=== PATIENT | female | born 1970 | race American Indian/Alaskan Native ===

== ENCOUNTER 2018-08-27 17:15 | Inpatient (IN) | payer MEDICAID, OTHER ==
[2018-08-27] MEDS ORDERED: ASPIRIN PO ONE (17:24)
[2018-08-27] MEDS ORDERED: LOPRESSOR IV ONE (17:52)
--- NOTE | 2018-08-27 17:55 | Emergency Department Report ---
ED Chest Pain HPI - General Chief Complaint: Chest Pain Stated Complaint: LEFT SIDE ARM/BACK SPASMS Time Seen by Provider: 08/27/18 17:33 Source: patient Mode of arrival: Ambulatory Limitations: No Limitations - History of Present Illness Initial Comments: 48-year-old -[place] female presents to the emergency department with a complaint of a 3-4 day history of some left-sided chest pain that she thought was gas pains. She tried some Gas-X for her symptoms without any relief. For the past 24 hours the patient has had some pain and numbness from the left shoulder down the left arm. All other symptoms are also associated with some shortness of breath and some nausea without vomiting. No recent travel or sick contacts at home. She does have a history of hypertension. She is a tobacco smoker. She denies any illicit drug use. No recent travel or sick contacts at home. She has a primary care physician but is having her first appointment with them this coming Monday. The pain is reproducible with movement of her left arm. - Related Data Home Medications Medication Instructions Recorded Confirmed Last Taken amLODIPine [Norvasc] 5 mg PO DAILY 08/27/18 08/27/18 08/24/18 Allergies Allergy/AdvReac Type Severity Reaction Status Date / Time No Known Allergies Allergy Verified 05/30/14 12:39 Heart Score - HEART Score History: Moderately suspicious EKG: Normal Age: 45-65 Risk factors: 1-2 risk factors Troponin: < normal limit HEART Score: 3 - Critical Actions Critical Actions: 0-3 pts:0.9-1.7%risk of adverse cardiac event.Candidate for discharge ED Review of Systems ROS: Stated complaint: LEFT SIDE ARM/BACK SPASMS Other details as noted in HPI Comment: All other systems reviewed and negative Constitutional: denies: chills, fever Eyes: denies: eye pain, vision change ENT: denies: ear pain, throat pain Respiratory: shortness of breath. denies: cough Cardiovascular: chest pain. denies: edema Gastrointestinal: denies: abdominal pain, vomiting Genitourinary: denies: dysuria, discharge Musculoskeletal: back pain, myalgia Skin: denies: rash, lesions Neurological: denies: headache, weakness ED Past Medical Hx - Past Medical History Hx Hypertension: Yes Hx Heart Attack/AMI: No Hx Diabetes: No Hx Deep Vein Thrombosis: No Hx Pulmonary Embolism: No Hx Liver Disease: No Hx Renal Disease: No Hx Sickle Cell Disease: No Hx Headaches / Migraines: No Hx Seizures: No Hx Asthma: No Hx COPD: No Hx Tuberculosis: No Hx HIV: No - Social History Smoking Status: Current Every Day Smoker Substance Use Type: Alcohol - Medications Home Medications: Home Medications Medication Instructions Recorded Confirmed Last Taken Type amLODIPine [Norvasc] 5 mg PO DAILY 08/27/18 08/27/18 08/24/18 History ED Physical Exam - General Limitations: No Limitations - Other Other exam information: GENERAL: The patient is well-developed well-nourished. HEENT: Normocephalic. Atraumatic. Patient has moist mucous membranes. EYES: Extraocular motions are intact. Pupils are equal and reactive to light bilaterally. NECK: Supple. Trachea is midline. CHEST/LUNGS: Clear to auscultation. There is no respiratory distress noted. HEART/CARDIOVASCULAR: Regular. There is no tachycardia. There is no obvious murmur. ABDOMEN: Abdomen is soft, nontender. Patient has normal bowel sounds. There is no abdominal distention. SKIN: Skin is warm and dry. NEURO: The patient is awake, alert, and oriented. The patient is cooperative. The patient has no focal neurologic deficits. The patient has normal speech. MUSCULOSKELETAL: There is no limitation range of motion. There is no evidence of acute injury. BACK: No midline thoracic or lumbar tenderness to palpation, step-off or deformity. There is some reproducible left upper lateral back tenderness to palpation over the musculature. ED Course Vital Signs 08/27/18 08/27/18 08/27/18 17:21 17:24 18:02 Temperature 98.2 F Pulse Rate 102 H 97 H Respiratory 20 19 Rate Blood Pressure 231/130 Blood Pressure 199/120 [Left] O2 Sat by Pulse 100 Oximetry 08/27/18 08/27/18 08/27/18 18:30 18:35 19:00 Temperature Pulse Rate 90 88 81 Respiratory 14 19 Rate Blood Pressure 188/115 173/101 Blood Pressure [Left] O2 Sat by Pulse 95 Oximetry 08/27/18 08/27/18 08/27/18 20:00 21:00 22:00 Temperature Pulse Rate 79 83 69 Respiratory 17 11 L 20 Rate Blood Pressure 175/103 171/99 170/95 Blood Pressure [Left] O2 Sat by Pulse Oximetry 08/27/18 23:01 Temperature Pulse Rate 74 Respiratory 16 Rate Blood Pressure 170/95 Blood Pressure [Left] O2 Sat by Pulse 98 Oximetry DARLENE score - Darlene Score Age > 65: (0) No Aspirin use within the Past 7 Days: (0) No 3 or more CAD Risk Factors: (0) No 2 or more Angina events in past 24 hrs: (1) Yes Known CAD with more than 50% Stenosis: (0) No Elevated Cardiac Markers: (0) No ST Deviation Greater than 0.5mm: (0) No DARLENE Score: 1 ED Medical Decision Making - Lab Data Result diagrams: 08/27/18 18:07 08/27/18 18:07 - EKG Data -: EKG Interpreted by Me EKG shows normal: sinus rhythm, axis, intervals, QRS complexes (q waves to the anterior leads), ST-T waves Rate: normal - EKG Data When compared to previous EKG there are: previous EKG unavailable Interpretation: other (sinus rhythm, Q waves to the anterior leads) - Radiology Data Radiology results: image reviewed interpreted by me: Chest x-ray does not show any pneumothorax, pleural effusion, pneumonia or obvious focal consolidation. - Medical Decision Making Patient presents with a few days of some left-sided chest pain as well as some pain to the left upper lateral back that radiates around and down her left arm. The back and extremity pain does appear to be consistent with muscle spasm or at least muscular skeletal pain. This could also be the etiology of the patient's chest pain. However the patient does have the risk factors of hypertension, tobacco use and has never had a full cardiac workup. EKG just shows some Q waves in the anterior leads but no ST elevation IA or significant dysrhythmia. So far the patient has negative troponins 2 and a negative d- dimer. Chest x-ray did not show any focal consolidation, pleural effusions, pneumothorax, pneumonia, or any other acute process. Patient's been given multiple treatment modalities for her discomfort without much relief. She will be admitted to the hospital for further evaluation and treatment was accepted for admission by the hospitalist, Dr. Hickman. - Differential Diagnosis IA, PE, Muscle Spasms, GERD Critical Care Time: No Critical care attestation.: If time is entered above; I have spent that time in minutes in the direct care of this critically ill patient, excluding procedure time. ED Disposition Clinical Impression: Acute chest pain, Chest pain, rule out acute myocardial infarction, Tobacco use, Hypokalemia Hypertension Qualifiers: Hypertension type: essential hypertension Qualified Code(s): I10 - Essential (primary) hypertension Disposition: OP ADMIT IP TO THIS HOSP Is pt being admited?: Yes Does the pt Need Aspirin: No Condition: Stable Instructions: Chest Pain (ED), Hypertension (ED) Time of Disposition: 00:16
[2018-08-27 18:22] LABS: Basophils # (Auto) 0.1 K/mm3 (0.0-0.1); Eosinophils # (Auto) 0.2 K/mm3 (0.0-0.4); Eosinophils % (Auto) 1.3 % (0.0-4.3); Hematocrit 40.7 % (30.3-42.9); Lymphocytes # (Auto) 3.9 K/mm3 (1.2-5.4); Lymphocytes % (Auto) 30.1 % (13.4-35.0); Mean Corpuscular HGB Conc 34 % (30-34); Mean Corpuscular Volume 92 fl (79-97); Monocytes # (Auto) 0.7 K/mm3 (0.0-0.8); Monocytes % (Auto) 5.1 % (0.0-7.3); Platelet Count 324 K/mm3 (140-440); Red Blood Count 4.44 M/mm3 (3.65-5.03)
[2018-08-27 18:33] LABS: INR 0.9 (0.87-1.13); Partial Thromboplastin Time 28.5 Sec. (24.2-36.6)
[2018-08-27 18:46] LABS: BUN/Creatinine Ratio 9; Blood Urea Nitrogen 6 mg/dL (7-17); Calcium 8.9 mg/dL (8.4-10.2); Hemolysis Index 23
[2018-08-27] MEDS ORDERED: K-DUR PO ONE (19:04)
[2018-08-27] MEDS ORDERED: VALIUM PO ONE (19:55)
[2018-08-27] MEDS ORDERED: TORADOL IV ONE (19:55)
--- NOTE | 2018-08-27 20:17 | XRay Report ---
FINAL REPORT PROCEDURE: Chest. TECHNIQUE: Portable AP view. HISTORY: Chest pain. COMPARISON: No prior studies are available for comparison. FINDINGS: The heart and mediastinum appear normal. There is mild tortuosity of the thoracic aorta. The lungs ar e grossly clear. There are no pleural effusions. The soft tissues and regional skeleton are unremarka ble. IMPRESSION: Negative portable chest.
[2018-08-27] MEDS ORDERED: NACL 0.9% 500 ML 500 ML IV ONE (21:36)
[2018-08-27] MEDS ORDERED: MORPHINE IV ONE (21:36)
[2018-08-28] MEDS ORDERED: NITROSTAT SL PRN (00:25)
[2018-08-28] MEDS ORDERED: ZOFRAN IV PRN (00:26)
[2018-08-28] MEDS ORDERED: MORPHINE IV PRN (00:26)
[2018-08-28] MEDS: NITRO-BID 2% TP SCH ×5 (01:47→18:12)
[2018-08-28] MEDS: TYLENOL PO PRN (03:10)
--- NOTE | 2018-08-28 04:30 | History and Physical Report ---
CHIEF COMPLAINT: Chest pain. HISTORY OF PRESENT ILLNESS: The patient is a 48-year-old who has been complaining of left-sided chest going on for about 3-4 days. The patient said initially she thought the pain was due to stomach Gas and the pain radiates down to the left upper extremity with some numbness in the left hand. There is also history of associated shortness of breath, nausea, but no vomiting. The patient stated the pain became increasingly severe in the last 24 hours and the patient decided to come to the Emergency Room. The patient stated that the pain is reproducible and worse with movement of the left upper extremity. PAST MEDICAL HISTORY: Pertinent for hypertension. PAST SURGICAL HISTORY: Unremarkable. FAMILY HISTORY: Pertinent for heart disease in the mother and coronary artery disease in the uncles. SOCIAL HISTORY: The patient smokes cigarettes, drinks alcohol, and does not use illicit drugs. MEDICATIONS: The patient is on Norvasc or amlodipine 5 mg by mouth daily. ALLERGIES: There are no known drug allergies. REVIEW OF SYSTEMS: CONSTITUTIONAL: There is no fever, no chills, no diaphoresis. HEENT: There is no headache or sore throat. CARDIOVASCULAR SYSTEM: Chest pain is present. No orthopnea. RESPIRATORY SYSTEM: Shortness of breath is present. No cough. GASTROINTESTINAL SYSTEM: There is nausea, but no vomiting, no abdominal pain, diarrhea or constipation. NEUROLOGICAL SYSTEM: There is numbness in the left upper extremity, but there is no dizziness and there is no altered mental status. MUSCULOSKELETAL SYSTEM: There is no joint pain or swelling. DERMATOLOGICAL SYSTEM: There is no skin rash or itching. GENITOURINARY SYSTEM: There is no dysuria, hematuria, or flank pain. Rest of system review is normal. PHYSICAL EXAMINATION: GENERAL: At the time of exam, the patient was found to be alert, oriented x 3 and not in acute distress. VITAL SIGNS: Showed temperature of 98.2 Fahrenheit, pulse of 102, respirations 20, blood pressure initially was 231/130. The blood pressure later on showed to be 170/95 after about 4-5 hours. HEENT: Showed pupils to be equal, round, reactive to light and accommodating. Extraocular motions are intact. NECK: Supple with no JVD or carotid bruit. CARDIOVASCULAR SYSTEM: Showed first and second heart sounds with no gallops or murmur. RESPIRATORY SYSTEM: Showed good air entry on both sides of the lung with no abnormal breath sounds. GASTROINTESTINAL SYSTEM: Showed abdomen to be full, soft, nontender with no organomegaly or rigidity. NEUROLOGICAL: Showed no focal deficit. MUSCULOSKELETAL SYSTEM: Showed no joint swelling or tenderness. DERMATOLOGICAL SYSTEM: Showing no skin rash. GENITOURINARY SYSTEM: Showing no costovertebral angle tenderness. PERTINENT LABORATORY AND IMAGING STUDIES: The patient had a chest x-ray done that shows negative portable chest x-ray results. Lab results, the patient had a CBC done with elevated white count of 12,900 with normal hemoglobin and normal hematocrit with unremarkable CBC differential. Coagulation study was unremarkable. The patient's chemistry showed low potassium level of 3.3 with rest of the chemistry being unremarkable. Cardiac enzymes showed normal troponin level and serum test was negative. DIAGNOSES: 1. Chest pain. 2. Hypokalemia. PLAN: 1. The patient will be admitted to telemetry. 2. The patient will have serial cardiac enzymes involving troponin total, CK check every 6 hours x 2 more levels. 3. The patient will be n.p.o. for Lexiscan stress test this morning. 4. The patient will be on the following medications: Aspirin 325 mg by mouth daily, heparin 5000 units subQ q.12 hours. 5. The patient will be on IV morphine 2 mg every 5 minutes as needed for chest pain and will be on nitro paste half-inch anterior chest wall q.i.d. 6. The patient will be on sublingual nitroglycerin 0.4 mg every 5 minutes as needed for breakthrough chest pain. 7. The patient will be on heparin 5000 units subQ q.12 hours for DVT prophylaxis and will be on Tylenol 650 mg by mouth every 4 hours for fever and headache. 8. The patient will remain n.p.o. for Lexiscan stress test this morning. 9. The patient will be on oxygen via nasal cannula at 2 liters per minute. 10. The patient will have basic metabolic panel done this morning to monitor the potassium level having received 30 mEq of potassium by mouth in the Emergency Room. JOB# [id number] OCN/NTS MTDD
[2018-08-28 06:11] LABS: Creatine Kinase MB 1.1 ng/mL (0.0-4.0)
[2018-08-28 06:12] LABS: BUN/Creatinine Ratio 11; Blood Urea Nitrogen 8 mg/dL (7-17); Calcium 8.4 mg/dL (8.4-10.2); Hemolysis Index 60
[2018-08-28] MEDS ORDERED: LEXISCAN IV ONE ×2 (09:16→09:17)
[2018-08-28] MEDS: ASPIRIN PO SCH (12:04)
[2018-08-28] MEDS: HEPARIN SUB-Q SCH ×2 (12:05→21:44)
[2018-08-28] MEDS ORDERED: APRESOLINE IV PRN (14:24)
[2018-08-28] MEDS: NORVASC PO SCH (17:47)
[2018-08-28] MEDS: ZESTRIL PO SCH (17:47)
[2018-08-28] MEDS: LIORESAL PO PRN (21:44)
--- NOTE | 2018-08-28 23:20 | Treadmill Report ---
THALLIUM STRESS TEST LEFT VENTRICLE: Left ventricular chamber size is within normal limits. Perfusion study demonstrates homogeneous uptake of the tracer in all segments, no significant perfusion defects identified. Gated analysis demonstrates normal left ventricular systolic function, ejection fraction of 55%. CONCLUSION: Normal myocardial perfusion study. JOB# [id number] CA/NTS
[2018-08-29] MEDS: LIORESAL PO PRN (04:57)
[2018-08-29] MEDS: NITRO-BID 2% TP SCH ×3 (05:05→14:54)
[2018-08-29] MEDS: TYLENOL PO PRN (09:10)
[2018-08-29] MEDS: NORVASC PO SCH (09:14)
[2018-08-29] MEDS: ASPIRIN PO SCH (09:14)
[2018-08-29] MEDS: HEPARIN SUB-Q SCH (09:14)
[2018-08-29] MEDS: ZESTRIL PO SCH (09:15)
[2018-08-29] MEDS ORDERED: FLEXERIL PO PRN (10:00)
--- NOTE | 2018-08-29 10:38 | XRay Report ---
LEFT SHOULDER: History: Pain in left shoulder. Routine views demonstrate normal bony and soft tissue structures with normal joint alignment of the shoulder. IMPRESSION: Normal study.
--- NOTE | 2018-08-29 13:32 | Discharge Summary ---
Providers - Providers Date of Admission: 08/28/18 00:20 Attending physician: BELL DIAZ MD Primary care physician: GOLF CART MAKER Hospitalization Condition: Stable Hospital course: 48-year-old woman who presented with left-sided chest pain and pain in her left shoulder and left arm. She thought she had gastroenteritis and gas ex. She was admitted to the hospital acute coronary syndrome was ruled out, she went to have a stress test that was negative. It appeared he origin of her pain was from left shoulder pain. Left shoulder x-ray was negative. The patient was recommended to take pain medications and muscle relaxants, and recommended to go to outpatient physical therapy with regards to her shoulder. She was counseled about tobacco cessation prior to discharge Discharge diagnoses Chest pain due to referred shoulder pain Tobacco abuse Hypertension Hypokalemia Disposition: TO HOME OR SELFCARE Time spent for discharge: 33 minutes Core Measure Documentation - Palliative Care Palliative Care/ Comfort Measures: Not Applicable - Core Measures Any of the following diagnoses?: none Exam - Constitutional Vitals: Temp Pulse Resp BP Pulse Ox 98.0 F 80 20 146/86 100 08/29/18 07:30 08/29/18 10:00 08/29/18 10:00 08/29/18 09:15 08/29/18 10:00 General appearance: Present: no acute distress, well-nourished - EENT Eyes: Present: PERRL ENT: hearing intact, clear oral mucosa - Neck Neck: Present: supple, normal ROM - Respiratory Respiratory effort: normal Respiratory: bilateral: CTA - Cardiovascular Heart Sounds: Present: S1 & S2. Absent: rub, click - Extremities Extremities: pulses symmetrical, No edema Peripheral Pulses: within normal limits - Abdominal General gastrointestinal: Present: soft, non-tender, non-distended, normal bowel sounds Female genitourinary: Present: normal - Integumentary Integumentary: Present: clear, warm, dry - Musculoskeletal Musculoskeletal: gait normal, strength equal bilaterally - Psychiatric Psychiatric: appropriate mood/affect, intact judgment & insight - Neurologic Neurologic: CNII-XII intact, moves all extremities Plan Follow up with: PRIMARY CARE, [Primary Care Provider] - 3-5 Days Prescriptions: amLODIPine [Norvasc] 10 mg PO DAILY #30 tablet Cyclobenzaprine [Flexeril 10 MG TAB] 10 mg PO Q8H PRN #14 tablet PRN Reason: Muscle Spasm Lisinopril [Zestril TAB] 20 mg PO QDAY #30 tablet
[2018-08-29 14:33] VITALS: BP 131/90
== END 2018-08-29 18:47 | disposition home or self-care (01) | DRG 556 ==
LOC: ED 17:15 → 4A 08-28 00:20
PROVIDERS: ADMIT Internal Medicine; ATTEND Internal Medicine
DX: M25.512 Pain in left shoulder (principal); K52.9 Noninfective gastroenteritis and colitis, unspecified; I10 Essential (primary) hypertension; E87.6 Hypokalemia; F17.210 Nicotine dependence, cigarettes, uncomplicated; Z72.89 Other problems related to lifestyle; Z71.6 Tobacco abuse counseling; Z79.899 Other long term (current) drug therapy; Z82.49 Family history of ischemic heart disease and other diseases of the circulatory system
CPT/HCPCS: 36415; 71045; 78452; 80048; 82550; 82553; 84484; 84703; 85025; 85379; 85610; 85730; 93005; 93010; 93017; 96361; 96374; 96375; 99406; G0378; A9502; J0360; J1644; J1885; J2270; J2785; J7040